=== PATIENT | male | born 1960 | race African-American/Black ===

== ENCOUNTER 2019-08-12 21:13 | Inpatient (IN) | payer MEDICARE ==
[~2019-08-12] VITALS: Ht 182.9 cm; Wt 98.9 kg
[2019-08-13 00:59] LABS: EOSINOPHILS % 0.7 % (0.0-5.0); HEMATOCRIT. 21.1 % (42.0-52.0); MEAN CORPUSCULAR HEMOGLOBIN 27.9 pg (28.0-32.0); MEAN CORPUSCULAR VOLUME 85.8 fL (80.0-94.0); MEAN PLATELET VOLUME 6.8 fl (7.4-10.4); MONOCYTES % 5.5 % (2.0-8.0); NEUTROPHILS % 65.8 % (40.0-76.0); PLATELET 402 x1000/uL (130-400); RED BLOOD CELL COUNT 2.47 mill/uL (4.7-6.1); RED CELL DISTRIBUTION WIDTH 20.2 % (11.6-14.6)
[2019-08-13 01:03] LABS: HEMOGLOBIN. 6.9 g/dL (14.0-18.0)
[2019-08-13 01:11] LABS: CHLORIDE 109 mEq/L (98-107)
[2019-08-13 01:52] LABS: CLARITY URINE TURBID (CLEAR); COLOR URINE DARK YELLOW (YELLOW); KETONES URINE NEGATIVE (NEGATIVE); LEUKOCYTE ESTERASE URINE 2+ (NEGATIVE); NITRITE URINE POSITIVE (NEGATIVE); OCCULT BLOOD URINE 1+ (NEGATIVE); PROTEIN URINE 1+ (NEGATIVE)
[2019-08-13] MEDS ORDERED: LEVOFLOXACIN 500MG PREMIX 100 ML IV NR (02:15)
[2019-08-13 02:32] LABS: TOTAL IRON BINDING CAPACITY 124 ug/dL (250-450)
[2019-08-13 06:00] VITALS: BP 110/66
[2019-08-13 08:52] VITALS: BP 117/70
[2019-08-13] MEDS ORDERED: LORAZEPAM 2MG/ML CPJ IV PRN (09:30)
[2019-08-13] MEDS ORDERED: ACETAMINOPHEN 325MG TABLET PO PRN (09:30)
[2019-08-13] MEDS ORDERED: NA PHOS,M-B/NA PHOS,DI-BA ENEMA 118ML PR PRN (09:30)
[2019-08-13] MEDS ORDERED: CLONIDINE 0.1MG TABLET PO PRN (09:30)
[2019-08-13] MEDS ORDERED: MORPHINE SULFATE 2 MG/ML CPJ (NOT FOR IM USE) IV PRN (09:30)
[2019-08-13] MEDS ORDERED: IPRATROPIUM/ALBUTEROL 0.5-3(2.5)MG/3ML NEB NEB PRN (09:30)
[2019-08-13] MEDS ORDERED: MAGNESIUM/ALUMINUM HYDROXIDE/SIMETHICONE 30ML UDC PO PRN (09:30)
[2019-08-13] MEDS ORDERED: DIPHENHYDRAMINE 50MG/ML VIAL IV PRN (09:30)
[2019-08-13] MEDS ORDERED: HYDROCODONE/ACETAMINOPHEN 5/325MG TABLET PO PRN (09:30)
[2019-08-13] MEDS ORDERED: ONDANSETRON HCL 4MG/2ML INJ IV PRN (09:30)
[2019-08-13] MEDS ORDERED: DOCUSATE SODIUM 100MG CAPSULE PO PRN (09:30)
[2019-08-13] MEDS ORDERED: GUAIFENESIN 200MG/10ML SUGAR FREE UDC PO PRN (09:30)
[2019-08-13] MEDS: SODIUM CHLORIDE 0.45% 1,000 ML IV SCH (10:29)
[2019-08-13 12:10] VITALS: BP 102/62
[2019-08-13 16:36] LABS: CHLORIDE 110 mEq/L (98-107)
[2019-08-13 16:37] VITALS: BP 109/60
[2019-08-13] MEDS ORDERED: LENA2.5C PO (19:14)
[2019-08-13] MEDS ORDERED: METOPROLOL TARTRATE 25MG TABLET PO SCH (20:30)
[2019-08-13 20:31] VITALS: BP 95/57
[2019-08-13] MEDS ORDERED: MEDICATION NOT ON FORMULARY EA (Travoprost (Travatan Z) 1 DROP) EACHEYE SCH (21:00)
[2019-08-13] MEDS ORDERED: ACYC200C PO (21:10)
[2019-08-13] MEDS ORDERED: TRAV2.5D EACHEYE (21:10)
[2019-08-13] MEDS ORDERED: METO-396 PO (21:10)
[2019-08-13] MEDS ORDERED: LENA25CA PO (21:10)
[2019-08-13] MEDS ORDERED: POTA-9 MT (21:10)
[2019-08-13] MEDS ORDERED: DORZ10DR8 EACHEYE (21:10)
[2019-08-13] MEDS ORDERED: APIX5TAB PO (21:10)
[2019-08-13] MEDS ORDERED: LIP40 PO (21:10)
[2019-08-13] MEDS ORDERED: METO25TA6 PO (21:10)
[2019-08-13] MEDS ORDERED: DULO60CA64 PO (21:10)
[2019-08-13] MEDS ORDERED: TIMO5DRO32 EACHEYE (21:10)
[2019-08-14 00:25] VITALS: BP 99/60
[2019-08-14] MEDS: POTASSIUM CHLORIDE 10MEQ TABLET SR PO SCH ×2 (00:35→09:57)
[2019-08-14] MEDS: DORZOLAMIDE 2% OPHTH 10 ML BOTTLE EACHEYE SCH ×3 (00:35→16:48)
[2019-08-14] MEDS: ATORVASTATIN CALCIUM 40MG TABLET PO SCH ×2 (00:35→21:20)
[2019-08-14] MEDS: DULOXETINE HCL 60MG DR CAPSULE PO SCH ×2 (00:35→09:57)
[2019-08-14] MEDS: REVLIMID 25 MG PO SCH ×2 (01:44→21:20)
[2019-08-14 04:38] VITALS: BP 109/67
[2019-08-14] MEDS: SODIUM CHLORIDE 0.45% 1,000 ML IV SCH (04:54)
[2019-08-14] MEDS: LEVOFLOXACIN 500MG PREMIX 100 ML IV SCH (06:03)
[2019-08-14 07:54] LABS: BASOPHILS % 1.4 % (0.0-2.0); HEMATOCRIT. 23.5 % (42.0-52.0); HEMOGLOBIN. 7.7 g/dL (14.0-18.0); LYMPHOCYTES % 27.6 % (20.0-50.0); MEAN CORPUSCULAR HEMOGLOBIN 28.2 pg (28.0-32.0); MEAN CORPUSCULAR VOLUME 86.2 fL (80.0-94.0); MEAN PLATELET VOLUME 7.6 fl (7.4-10.4); MONOCYTES % 7.2 % (2.0-8.0); NEUTROPHILS % 61.8 % (40.0-76.0); PLATELET 348 x1000/uL (130-400); RED BLOOD CELL COUNT 2.73 mill/uL (4.7-6.1); RED CELL DISTRIBUTION WIDTH 19.4 % (11.6-14.6)
[2019-08-14 08:00] VITALS: BP 108/66
[2019-08-14 08:20] LABS: CHLORIDE 108 mEq/L (98-107)
[2019-08-14 08:35] LABS: LDL CHOLESTEROL 31 mg/dL (5-100)
[2019-08-14 08:39] LABS: HDL CHOLESTEROL 22 mg/dL (40-59)
[2019-08-14] MEDS: METOPROLOL TARTRATE 25MG TABLET PO SCH ×3 (09:00→21:20)
[2019-08-14] MEDS: TIMOLOL MALEATE 0.5% OPHTH DROPS 5ML EACHEYE SCH ×2 (09:57→16:48)
[2019-08-14 12:00] VITALS: BP 100/69
[2019-08-14] MEDS: SODIUM HYPOCHLORITE 0.125% 473ML SOLUTION TOP SCH ×2 (12:10→16:48)
[2019-08-14 16:00] VITALS: BP 105/71
[2019-08-14 20:42] VITALS: BP 105/57
[2019-08-14] MEDS: LATANOPROST 0.005% OPHTH DROPS 2.5ML BOTHEYE SCH (21:21)
[2019-08-15] VITALS: BP 101/66
[2019-08-15 04:00] VITALS: BP 96/60
[2019-08-15] MEDS: LEVOFLOXACIN 500MG PREMIX 100 ML IV SCH (05:07)
[2019-08-15 08:00] VITALS: BP 96/62
[2019-08-15 08:25] LABS: BASOPHILS % 2.1 % (0.0-2.0); EOSINOPHILS % 3.3 % (0.0-5.0); HEMATOCRIT. 23.7 % (42.0-52.0); HEMOGLOBIN. 7.7 g/dL (14.0-18.0); LYMPHOCYTES % 33.7 % (20.0-50.0); MEAN CORPUSCULAR HEMOGLOBIN 27.8 pg (28.0-32.0); MEAN CORPUSCULAR VOLUME 85.8 fL (80.0-94.0); MEAN PLATELET VOLUME 7.7 fl (7.4-10.4); MONOCYTES % 8.5 % (2.0-8.0); NEUTROPHILS % 52.4 % (40.0-76.0); PLATELET 348 x1000/uL (130-400); RED BLOOD CELL COUNT 2.76 mill/uL (4.7-6.1); RED CELL DISTRIBUTION WIDTH 19.4 % (11.6-14.6)
[2019-08-15 08:57] LABS: CHLORIDE 108 mEq/L (98-107)
[2019-08-15] MEDS: METOPROLOL TARTRATE 25MG TABLET PO SCH ×2 (09:00→21:00)
[2019-08-15] MEDS: DORZOLAMIDE 2% OPHTH 10 ML BOTTLE EACHEYE SCH ×2 (09:46→18:37)
[2019-08-15] MEDS ORDERED: BISACODYL 10MG SUPP PR SCH (11:30)
[2019-08-15 12:00] VITALS: BP 102/67
[2019-08-15] MEDS: POTASSIUM CHLORIDE 10MEQ TABLET SR PO SCH (12:03)
[2019-08-15] MEDS: ACYCLOVIR 400 MG TABLET PO SCH ×2 (12:03→18:36)
[2019-08-15] MEDS: DULOXETINE HCL 60MG DR CAPSULE PO SCH (12:03)
[2019-08-15] MEDS: TIMOLOL MALEATE 0.5% OPHTH DROPS 5ML EACHEYE SCH ×2 (12:03→18:37)
[2019-08-15] MEDS: SODIUM HYPOCHLORITE 0.125% 473ML SOLUTION TOP SCH ×2 (12:04→18:37)
[2019-08-15] MEDS: SODIUM CHLORIDE 0.45% 1,000 ML IV SCH ×2 (12:07→21:45)
[2019-08-15 16:00] VITALS: BP 103/69
[2019-08-15 20:16] VITALS: BP 109/59
[2019-08-15] MEDS: APIXABAN 5 MG TABLET PO SCH (21:00)
[2019-08-15] MEDS: ATORVASTATIN CALCIUM 40MG TABLET PO SCH (21:25)
[2019-08-15] MEDS: LATANOPROST 0.005% OPHTH DROPS 2.5ML BOTHEYE SCH (21:25)
[2019-08-15] MEDS: REVLIMID 25 MG PO SCH (21:26)
[2019-08-16 00:31] VITALS: BP 101/55
[2019-08-16 04:00] VITALS: BP 98/59
[2019-08-16] MEDS: LEVOFLOXACIN 500MG PREMIX 100 ML IV SCH (05:18)
[2019-08-16 06:57] LABS: BASOPHILS % 1.8 % (0.0-2.0); EOSINOPHILS % 1.9 % (0.0-5.0); HEMATOCRIT. 23.8 % (42.0-52.0); HEMOGLOBIN. 7.9 g/dL (14.0-18.0); MEAN CORPUSCULAR HEMOGLOBIN 28.1 pg (28.0-32.0); MEAN CORPUSCULAR VOLUME 84.6 fL (80.0-94.0); MEAN PLATELET VOLUME 7.6 fl (7.4-10.4); MONOCYTES % 11.3 % (2.0-8.0); PLATELET 328 x1000/uL (130-400); RED BLOOD CELL COUNT 2.82 mill/uL (4.7-6.1)
[2019-08-16 07:05] LABS: CHLORIDE 107 mEq/L (98-107)
[2019-08-16 08:00] VITALS: BP 118/65
[2019-08-16] MEDS: APIXABAN 5 MG TABLET PO SCH ×2 (10:54→20:48)
[2019-08-16] MEDS: POTASSIUM CHLORIDE 10MEQ TABLET SR PO SCH (10:54)
[2019-08-16] MEDS: DORZOLAMIDE 2% OPHTH 10 ML BOTTLE EACHEYE SCH ×2 (10:54→17:41)
[2019-08-16] MEDS: DULOXETINE HCL 60MG DR CAPSULE PO SCH (10:55)
[2019-08-16] MEDS: ACYCLOVIR 400 MG TABLET PO SCH ×2 (10:55→17:41)
[2019-08-16] MEDS: METOPROLOL TARTRATE 25MG TABLET PO SCH ×2 (10:57→20:48)
[2019-08-16] MEDS: TIMOLOL MALEATE 0.5% OPHTH DROPS 5ML EACHEYE SCH ×2 (10:58→18:14)
[2019-08-16 12:00] VITALS: BP 112/80
[2019-08-16] MEDS: SODIUM HYPOCHLORITE 0.125% 473ML SOLUTION TOP SCH ×2 (12:51→18:34)
[2019-08-16] MEDS ORDERED: MAGNESIUM 2 G PREMIX 50 ML IV SCH (13:00)
[2019-08-16 16:00] VITALS: BP 105/72
[2019-08-16] MEDS: MEROPENEM 1,000 MG in SODIUM CHLORIDE 0.9% 50 ML IV SCH ×2 (16:42→23:01)
[2019-08-16 20:24] VITALS: BP 95/61
[2019-08-16] MEDS: REVLIMID 25 MG PO SCH (20:48)
[2019-08-16] MEDS: LATANOPROST 0.005% OPHTH DROPS 2.5ML BOTHEYE SCH (20:48)
[2019-08-16] MEDS: ATORVASTATIN CALCIUM 40MG TABLET PO SCH (20:48)
[2019-08-17 00:33] VITALS: BP 93/60
[2019-08-17 04:32] VITALS: BP 91/59
[2019-08-17 07:52] LABS: HEMATOCRIT. 24.7 % (42.0-52.0); HEMOGLOBIN. 8.1 g/dL (14.0-18.0); MEAN CORPUSCULAR HEMOGLOBIN 27.9 pg (28.0-32.0); MEAN PLATELET VOLUME 7.6 fl (7.4-10.4); PLATELET 315 x1000/uL (130-400); RED BLOOD CELL COUNT 2.91 mill/uL (4.7-6.1)
[2019-08-17 08:00] VITALS: BP 101/65
[2019-08-17 08:47] LABS: CHLORIDE 105 mEq/L (98-107)
[2019-08-17] MEDS: POTASSIUM CHLORIDE 10MEQ TABLET SR PO SCH (09:00)
[2019-08-17] MEDS: DORZOLAMIDE 2% OPHTH 10 ML BOTTLE EACHEYE SCH ×2 (09:00→14:09)
[2019-08-17] MEDS: DULOXETINE HCL 60MG DR CAPSULE PO SCH ×2 (09:00→14:08)
[2019-08-17] MEDS: SODIUM HYPOCHLORITE 0.125% 473ML SOLUTION TOP SCH ×2 (09:00→14:10)
[2019-08-17] MEDS: TIMOLOL MALEATE 0.5% OPHTH DROPS 5ML EACHEYE SCH ×2 (09:00→14:09)
[2019-08-17] MEDS: APIXABAN 5 MG TABLET PO SCH ×2 (09:00→14:19)
[2019-08-17] MEDS: METOPROLOL TARTRATE 25MG TABLET PO SCH (09:00)
[2019-08-17] MEDS: ACYCLOVIR 400 MG TABLET PO SCH ×2 (09:00→14:08)
[2019-08-17 09:32] LABS: PLATELET ESTIMATE NORMAL
[2019-08-17] MEDS: MEROPENEM 1,000 MG in SODIUM CHLORIDE 0.9% 50 ML IV SCH (09:43)
[2019-08-17 12:00] VITALS: BP 120/60
== END 2019-08-17 19:30 | disposition home health service (06) | DRG 40 ==
LOC: ER 22:44 → EDBEDREQ 08-13 02:48 → EDBEDREQTM 08-13 02:48 → ENRESERV 08-13 03:37 → 6WST 08-13 05:04
PROVIDERS: ADMIT Internal Medicine; ATTEND Internal Medicine
PROC: 0KBP0ZZ Excision of Left Hip Muscle, Open Approach (ICD-10-PCS; principal; 2019-08-13)
PROC: 0KBN0ZZ Excision of Right Hip Muscle, Open Approach (ICD-10-PCS; 2019-08-13)
PROC: 30233N1 Transfusion of Nonautologous Red Blood Cells into Peripheral Vein, Percutaneous Approach (ICD-10-PCS; 2019-08-13)
PROC: 4A00X4Z Measurement of Central Nervous Electrical Activity, External Approach (ICD-10-PCS; 2019-08-14)
DX: G90.8 Other disorders of autonomic nervous system (principal); G93.41 Metabolic encephalopathy; L89.154 Pressure ulcer of sacral region, stage 4; N39.0 Urinary tract infection, site not specified; E46 Unspecified protein-calorie malnutrition; C90.00 Multiple myeloma not having achieved remission; G82.20 Paraplegia, unspecified; I27.81 Cor pulmonale (chronic); E86.0 Dehydration; D64.9 Anemia, unspecified; L89.509 Pressure ulcer of unspecified ankle, unspecified stage; I10 Essential (primary) hypertension; I49.3 Ventricular premature depolarization; I25.10 Atherosclerotic heart disease of native coronary artery without angina pectoris; F32.9 Major depressive disorder, single episode, unspecified; F41.9 Anxiety disorder, unspecified; J45.909 Unspecified asthma, uncomplicated; L89.609 Pressure ulcer of unspecified heel, unspecified stage; R32 Unspecified urinary incontinence; Z74.01 Bed confinement status; Z79.01 Long term (current) use of anticoagulants; Z86.711 Personal history of pulmonary embolism; Z86.718 Personal history of other venous thrombosis and embolism; Z92.21 Personal history of antineoplastic chemotherapy; Z68.29 Body mass index [BMI] 29.0-29.9, adult; Z79.899 Other long term (current) drug therapy
CPT/HCPCS: 36415; 80048; 80061; 81003; 82270; 83540; 83550; 83735; 83880; 84134; 84484; 86850; 86900; 86920; 87077; 87186; 93005; 93306; 93923; 96374; 99285; J1956; J2185; J3475; J7070; P9016